=== PATIENT | female | born 1960 | race Caucasian/White ===

== ENCOUNTER 2020-09-15 07:34 | Outpatient (REF) | payer OTHER, SELFPAY ==
[2020-09-15 08:39] LABS: Hemoglobin 12.8 g/dl (12.0-16.0); Mean Corpuscular Hemoglobin 28.4 pg (27.0-33.0); Mean Corpuscular Volume 88.9 fL (80-98); Mean Platelet Volume 10.1 fL (9.4-12.3); Platelet Count 307 X10*3/uL (160-400); Red Cell Distribution Width 12.9 % (11.0-16.0); White Blood Count 5.2 X10*3/uL (4.8-10.8)
[2020-09-15 09:16] LABS: Alanine Aminotransferase 6 U/L (0-31); Albumin Level 4.4 g/dL (3.5-5.0); Alkaline Phosphatase 64 U/L (39-117); Anion Gap 16 (12-20); Aspartate Amino Transferase 15 U/L (5-31); Bilirubin Total 1.1 mg/dL (0.0-1.0); Blood Urea Nitrogen 18 mg/dL (9-16); Calcium 9.4 mg/dL (8.4-10.2); Carbon Dioxide 24 mmol/L (22-29); Chloride 106 mmol/L (96-108); Cholesterol 229 mg/dL; Estimated Glomerular Filt Rate 55; Glucose Random 83 mg/dL (60-115); HDL Cholesterol 65 mg/dL; LDL Cholesterol Calculated 150 mg/dl; Potassium 4.4 mmol/L (3.3-5.1); Sodium 142 mmol/L (135-145); Total Protein 7.1 g/dL (6.5-8.0); Triglycerides 74 mg/dL
[2020-09-15 09:28] LABS: TSH reflex Free T4 1.69 uIU/mL (0.32-4.0); Vitamin D 25-OH Total 24.1 ng/mL (>30)
[2020-09-15 10:29] LABS: Reflex LDLD? No
== END 2020-09-15 07:35 | disposition home or self-care (01) ==
LOC: HO.LAB 07:34
PROVIDERS: PCP Internal Medicine; Visit Provider Internal Medicine
DX: Z00.00 Encounter for general adult medical examination without abnormal findings (principal); E55.9 Vitamin D deficiency, unspecified; E04.1 Nontoxic single thyroid nodule; I10 Essential (primary) hypertension
CPT/HCPCS: 36415; 80053; 80061; 82306; 84443; 85027

== ENCOUNTER 2021-05-25 13:16 | Outpatient (REF) | payer OTHER, SELFPAY ==
[2021-05-25 15:10] LABS: Free T4 (Free Thyroxine) 1.07 ng/dL (0.71-1.85); Thyroid Stimulating Hormone 2.53 uIU/mL (0.32-4.0)
== END 2021-05-25 13:17 | disposition home or self-care (01) ==
LOC: HO.LAB 13:16
PROVIDERS: PCP Internal Medicine; Visit Provider Internal Medicine
DX: E04.2 Nontoxic multinodular goiter (principal)
CPT/HCPCS: 36415; 84439; 84443

== ENCOUNTER 2021-06-30 14:21 | Outpatient (REF) | payer OTHER, SELFPAY ==
--- NOTE | ~2021-06-30 | US_ITS ---
EXAMINATION: US THYROID CLINICAL INFORMATION: Nontoxic multinodular goiter. COMPARISON: Ultrasound soft tissue head/neck thyroid dated 03/24/2019 and 02/26/2018. TECHNIQUE: Linear transducer grayscale and color Doppler examination with attention to the region of the thyroid. FINDINGS: SIZE: Measurements of the thyroid lobes and nodules are given in sagittal, anteroposterior and transverse dimensions respectively. Right Thyroid Lobe: 4.7 x 1.3 x 1.6 cm, volume 5.0 mL. Previously 5.0 x 1.5 x 1.7 cm, volume 6.7 mL. Parenchyma: The gland echotexture is heterogeneous. Thyroid vascularity is normal. Left Thyroid Lobe: 5.2 x 1.1 x 1.8 cm, volume 5.0 mL. Previously 5.3 x 1.5 x 1.7 cm, volume 7.1 mL. Parenchyma: The gland echotexture is heterogeneous. Thyroid vascularity is normal. Isthmus: 0.3 cm in maximum AP dimension. Previously 0.5 cm. Estimated total number of nodules greater than or equal to 1 cm: 0. Manufacturing Technology Professor nodules are described as follows: 1. Location: Right superior. Size: 0.68 x 0.51 x 0.57 cm, volume 0.1 mL. Previously: Not seen on the previous study. Nodule characteristics: Composition: Solid (2). Echogenicity: Hypoechoic (2). Shape: Not taller than wide (0). Margins: Smooth (0). Echogenic Foci: None (0). ACR TI-RADS total points: 4 ACR TI-RADS category: 4 2. Location: Left superior. Size: 0.55 x 0.31 x 0.6 cm, volume 0.05 mL. Previously: Not seen on the previous study. Nodule characteristics: Composition: Solid (2). Echogenicity: Hypoechoic (2). Shape: Not taller than wide (0). Margins: Ill-defined (0). Echogenic Foci: None (0). ACR TI-RADS total points: 4 ACR TI-RADS category: 4 3. Location: Left mid. Size: 0.57 x 0.31 x 0.57 cm, volume 0.05 mL. Previously: Not seen on the previous study. Nodule characteristics: Composition: Solid/almost completely solid (2). Echogenicity: Isoechoic (1). Shape: Not taller than wide (0). Margins: Smooth (0). Echogenic Foci: None (0). ACR TI-RADS total points: 3 ACR TI-RADS category: 3 4. Location: Isthmus. Size: 0.5 x 0.32 x 0.5 cm, volume 0.08 mL. Previously: 0.5 x 0.3 x 0.5 cm, volume 0.08 mL. Nodule characteristics: Composition: Solid/almost completely solid (2). Echogenicity: Isoechoic (1). Shape: Not taller than wide (0). Margins: Smooth (0). Echogenic Foci: None (0). ACR TI-RADS total points: 3 ACR TI-RADS category: 3 5. Location: Isthmus. Size: 0.35 x 0.2 x 0.25 cm, volume 0.01 mL. Previously: 0.52 x 0.25 x 0.35 cm, volume 0.02 mL. Nodule characteristics: Composition: Solid/almost completely solid (2). Echogenicity: Hypoechoic (2). Shape: Not taller than wide (0). Margins: Smooth (0). Echogenic Foci: None (0). ACR TI-RADS total points: 4 ACR TI-RADS category: 4 NODES: A few scattered normal-size lymph nodes.. US/US thyroid IMPRESSION: Redemonstration of mildly enlarged diffusely heterogeneous thyroid thyromegaly. Redemonstration of multiple bilateral solid subcentimeter lung nodules, mostly unchanged allowing for interobserver variability. ACR TI-RADS RECOMMENDATION REFERENCE: Ultrasound-guided fine-needle aspiration, followup ultrasound, no further follow up. * TR1 (0 point) and TR 2 (2 points): No FNA or follow up * TR3 (3 points): FNA if more than or equal to 2.5 cm in maximum dimension, followup ultrasound in 1, 3 and 5 years if 1.5 to 2.4 cm in maximum dimension. * TR4 (4-6 points): FNA if more than or equal to 1.5 cm in maximum dimension, followup ultrasound in 1, 2, 3 and 5 years if 1 to 1.4 cm in maximum dimension. * TR5 (more than or equal to 7 points): FNA if more than or equal to 1 cm in maximum dimension, followup ultrasound every year for 5 years if 0.5 to 0.9 cm in maximum dimension. * TR3, TR4 or TR5 nodules that are below the size threshold for follow up receive no follow up.
== END 2021-06-30 14:22 | disposition home or self-care (01) ==
LOC: HO.US 14:21
PROVIDERS: Visit Provider Internal Medicine
DX: E04.2 Nontoxic multinodular goiter (principal)
CPT/HCPCS: 76536

== ENCOUNTER 2021-09-14 07:02 | Outpatient (REF) | payer OTHER, SELFPAY ==
[2021-09-14 07:30] LABS: Hematocrit 41.9 % (37.0-47.0); Hemoglobin 13.4 g/dl (12.0-16.0); Mean Corpuscular Hemoglobin 28.9 pg (27.0-33.0); Mean Corpuscular Volume 90.5 fL (80.0-98.0); Mean Platelet Volume 10.2 fL (9.4-12.3); Platelet Count 210 X10*3/uL (160-400); Red Blood Count 4.63 X10*6/uL (4.20-5.50); Red Cell Distribution Width 12.5 % (11.0-16.0); White Blood Count 4.8 X10*3/uL (4.8-10.8)
[2021-09-14 07:59] LABS: Alanine Aminotransferase 13 U/L (0-31); Albumin Level 4.2 g/dL (3.5-5.0); Alkaline Phosphatase 47 U/L (39-117); Anion Gap 13 (12-20); Aspartate Amino Transferase 17 U/L (5-31); Bilirubin Total 0.9 mg/dL (0.0-1.0); Blood Urea Nitrogen 21 mg/dL (9-16); Calcium 9.7 mg/dL (8.4-10.2); Carbon Dioxide 24 mmol/L (22-29); Chloride 106 mmol/L (96-108); Cholesterol 210 mg/dL; Estimated Glomerular Filt Rate 55; Glucose Random 84 mg/dL (60-115); HDL Cholesterol 65 mg/dL; LDL Cholesterol Calculated 132 mg/dl; Potassium 4.1 mmol/L (3.3-5.1); Sodium 139 mmol/L (135-145); Total Protein 6.7 g/dL (6.5-8.0); Triglycerides 66 mg/dL
[2021-09-14 12:03] LABS: Reflex LDLD? No
[2021-09-15 14:16] LABS: Vitamin D 25-OH Total 43.1 ng/mL (>30)
== END 2021-09-14 07:03 | disposition home or self-care (01) ==
LOC: HO.LAB 07:02
PROVIDERS: PCP Internal Medicine; Visit Provider Internal Medicine
DX: I10 Essential (primary) hypertension (principal); E78.5 Hyperlipidemia, unspecified; E55.9 Vitamin D deficiency, unspecified
CPT/HCPCS: 36415; 80053; 80061; 82306; 85027

== ENCOUNTER 2022-05-22 12:48 | Outpatient (REF) | payer OTHER, SELFPAY ==
--- NOTE | ~2022-05-22 | US_ITS ---
EXAMINATION: US THYROID CLINICAL INFORMATION: Nontoxic multinodular goiter. COMPARISON: Ultrasound soft tissue head/neck thyroid dated 06/30/2021 and 03/24/2019. TECHNIQUE: Linear transducer grayscale and color Doppler examination with attention to the region of the thyroid. FINDINGS: SIZE: Measurements of the thyroid lobes and nodules are given in sagittal, anteroposterior and transverse dimensions respectively. Right Thyroid Lobe: 5.3 x 1.3 x 1.6 cm, volume 5.6 mL. Previously 4.7 x 1.3 x 1.6 cm, volume 5.0 mL. Parenchyma: The gland echotexture is heterogeneous. Thyroid vascularity is normal. Left Thyroid Lobe: 5.4 x 1.4 x 1.5 cm, volume 6.1 mL. Previously 5.2 x 1.1 x 1.8 cm, volume 5.0 mL. Parenchyma: The gland echotexture is heterogeneous. Thyroid vascularity is normal. Isthmus: 0.4 cm in maximum AP dimension. Previously 0.3 cm. Estimated total number of nodules greater than or equal to 1 cm: 0. Lead Assistant Manager nodules are described as follows: 1. Location: Right inferior. Size: 0.7 x 0.4 x 0.6 cm, volume 0.09 mL. Previously: New since the previous study. Nodule characteristics: Composition: Solid (2). Echogenicity: Isoechoic (1). Shape: Not taller than wide (0). Margins: Smooth (0). Echogenic Foci: None (0). ACR TI-RADS total points: 3 ACR TI-RADS category: 3 2. Location: Left superior/mid. Size: 0.6 x 0.4 x 0.7 cm, volume 0.08 mL. Previously: 0.6 x 0.6 x 0.3 cm, volume 0.05 mL. Nodule characteristics: Composition: Solid/almost completely solid (2). Echogenicity: Isoechoic (1). Shape: Not taller than wide (0). Margins: Smooth (0). Echogenic Foci: None (0). ACR TI-RADS total points: 3 Previous: 3 ACR TI-RADS category: 3 Previous: 3 Significant change in size (>/= 20% in 2 dimensions and minimal increase of 2 mm or 50% or greater increase in volume): None Change in features: None Change in ACR TI-RADS risk category: No change 3. Location: Isthmus. Size: 0.4 x 0.2 x 0.3 cm, volume 0.008 mL. Previously: 0.3 x 0.3 x 0.2 cm, volume 0.009 mL. Nodule characteristics: Composition: Solid/almost completely solid (2). Echogenicity: Hypoechoic (2). Shape: Not taller than wide (0). Margins: Smooth (0). Echogenic Foci: None (0). ACR TI-RADS total points: 4 Previous: 4 ACR TI-RADS category: 4 Previous: 4 Significant change in size (>/= 20% in 2 dimensions and minimal increase of 2 mm or 50% or greater increase in volume): None Change in features: None Change in ACR TI-RADS risk category: No change 4. Location: Isthmus. Size: 0.5 x 0.2 x 0.5 cm, volume 0.03 mL. Previously: 0.5 x 0.5 x 0.3 cm, volume 0.08 mL. Nodule characteristics: Composition: Solid/almost completely solid (2). Echogenicity: Isoechoic (1). Shape: Not taller than wide (0). Margins: Smooth (0). Echogenic Foci: None (0). ACR TI-RADS total points: 3 Previous: 3 ACR TI-RADS category: 3 Previous: 3 Significant change in size (>/= 20% in 2 dimensions and minimal increase of 2 mm or 50% or greater increase in volume): None Change in features: None Change in ACR TI-RADS risk category: No change NODES: No lymphadenopathy is seen in the tissue surrounding the thyroid gland. US/US thyroid IMPRESSION: 1. Heterogeneous thyroid gland with subcentimeter nonsuspicious nodules. No change from the last exam. 2. TR1 (0 point) and TR 2 (2 points): 3. TR4 (4-6 points): FNA if more than or equal to 1.5 cm in maximum dimension, followup ultrasound in 1, 2, 3 and 5 years if 1 to 1.4 cm in maximum dimension. 4. TR5 (more than or equal to 7 points): FNA if more than or equal to 1 cm in maximum dimension, followup ultrasound every year for 5 years if 0.5 to 0.9 cm in maximum dimension.
[2022-05-22 15:52] LABS: Free T4 (Free Thyroxine) 0.94 ng/dL (0.71-1.85); Thyroid Stimulating Hormone 1.28 uIU/mL (0.32-4.0)
== END 2022-05-22 12:49 | disposition home or self-care (01) ==
LOC: HO.US 12:48
PROVIDERS: PCP Internal Medicine; Visit Provider Internal Medicine
DX: E04.2 Nontoxic multinodular goiter (principal)
CPT/HCPCS: 36415; 76536; 84439; 84443

== ENCOUNTER 2022-06-22 09:58 | Outpatient (REF) | payer OTHER, SELFPAY ==
[2022-06-22 11:36] LABS: Alanine Aminotransferase 11 U/L (0-31); Albumin Level 4.2 g/dL (3.5-5.0); Alkaline Phosphatase 46 U/L (39-117); Anion Gap 9 (12-20); Aspartate Amino Transferase 17 U/L (5-31); Bilirubin Total 0.7 mg/dL (0.0-1.0); Blood Urea Nitrogen 20 mg/dL (9-16); Calcium 9.4 mg/dL (8.4-10.2); Carbon Dioxide 28 mmol/L (22-29); Chloride 108 mmol/L (96-108); Estimated Glomerular Filt Rate 58; Glucose Random 88 mg/dL (60-115); Phosphorus 3.7 mg/dL (2.7-4.5); Potassium 4.1 mmol/L (3.3-5.1); Sodium 141 mmol/L (135-145); Total Protein 6.7 g/dL (6.5-8.0); Vitamin D 25-OH Total 47.5 ng/mL (>30)
[2022-06-25 13:09] LABS: Calcium (PTHI) 9.4 mg/dL (8.6-10.4); PTHI 55 pg/mL (16-77)
== END 2022-06-22 09:59 | disposition home or self-care (01) ==
LOC: HO.LAB 09:58
PROVIDERS: PCP Internal Medicine; Visit Provider Internal Medicine
DX: E21.3 Hyperparathyroidism, unspecified (principal)
CPT/HCPCS: 36415; 80053; 82306; 83970; 84100

== ENCOUNTER 2022-08-10 08:46 | Outpatient (REF) | payer OTHER, SELFPAY ==
--- NOTE | 2022-08-10 09:07 | P.BOP_ITS ---
Brief Operative Note Date of Service: 08/10/22 Pre-op diagnosis: Goiter Procedure: EXAMINATION: US THYROID CLINICAL INFORMATION: Multinodular Thyroid COMPARISON: Prior TECHNIQUE: Linear transducer block-scale and color Doppler examination with attention to the region of the thyroid. FINDINGS: SIZE: Measurements of the thyroid lobes and nodules are given in sagittal, anteroposterior and transverse dimensions respectively. Right Thyroid Lobe: 4.6 x 1.1 x 1.7 cm, volume 4.5 mL. Parenchyma: The gland echotexture is diffusely heterogenous. Thyroid vascularity is increased. Left Thyroid Lobe: 5.2 x 1.4 x 1.7 cm, volume 6.5 mL. Parenchyma: The gland echotexture is diffusely heterogenous. Thyroid vascularity is increased. Isthmus: 0.5 cm in maximum AP dimension. There are no true thyroid nodules appreciated, only pseudonodules in this diffusely heterogenous gland. NODES: No lymph nodes were assessed during this exam. Surgeon: Aurea Pires, DO Was an Environmental Health Technologist used for this Procedure?: No Estimated blood loss (mL): 0
== END 2022-08-10 08:47 | disposition home or self-care (01) ==
LOC: HO.US 08:46
PROVIDERS: Visit Provider Internal Medicine
DX: E04.2 Nontoxic multinodular goiter (principal)
CPT/HCPCS: 76536

== ENCOUNTER → 2022-10-25 09:32 | Outpatient (BNVA) | payer OTHER, SELFPAY | PROVIDERS: PCP Internal Medicine; Visit Provider Internal Medicine ==

== ENCOUNTER 2022-11-22 07:35 | Outpatient (REF) | payer OTHER, SELFPAY ==
[2022-11-22 07:49] LABS: MANUAL DIFF FLAG NO
[2022-11-22 08:34] LABS: Basophils Absolute Auto 0.1 X10*3/uL (0.0-0.2); Basophils Percent Auto 1.2 % (0-2); Eosinophils Absolute Auto 0.1 X10*3/uL (0.0-0.4); Eosinophils Percent Auto 2.7 % (0-4); Hematocrit 41.5 % (37.0-47.0); Hemoglobin 13.2 g/dl (12.0-16.0); Imm Gran Abs Auto 0.01 X10*3/uL (0.00-0.03); Imm Gran Pct Auto 0.2 % (0.0-0.4); Lymphocytes Absolute Auto 1.5 X10*3/uL (1.2-4.9); Lymphocytes Percent Auto 29.8 % (20-40); Mean Corpuscular HGB Conc 31.8 g/dl (31.0-35.0); Mean Corpuscular Hemoglobin 28.7 pg (27.0-33.0); Mean Corpuscular Volume 90.2 fL (80.0-98.0); Mean Platelet Volume 10.1 fL (9.4-12.3); Monocytes Absolute Auto 0.6 X10*3/uL (0.1-1.2); Monocytes Percent Auto 11.5 % (2-11); Neutrophils Absolute Auto 2.8 x10*3/uL (2.0-8.3); Neutrophils Percent Auto 54.6 % (45-73); Platelet Count 246 X10*3/uL (160-400); Red Cell Distribution Width 13.1 % (11.0-16.0); White Blood Count 5.1 X10*3/uL (4.8-10.8)
[2022-11-22 09:22] LABS: Alanine Aminotransferase 13 U/L (0-31); Albumin Level 4.3 g/dL (3.5-5.0); Alkaline Phosphatase 57 U/L (39-117); Anion Gap 12 (12-20); Aspartate Amino Transferase 19 U/L (5-31); Blood Urea Nitrogen 19 mg/dL (9-16); Calcium 9.7 mg/dL (8.4-10.2); Carbon Dioxide 25 mmol/L (22-29); Chloride 108 mmol/L (96-108); Cholesterol 229 mg/dL; Estimated Glomerular Filt Rate 58; Glucose Random 86 mg/dL (60-115); HDL Cholesterol 71 mg/dL; LDL Cholesterol Calculated 143 mg/dl; Potassium 4.3 mmol/L (3.3-5.1); Sodium 141 mmol/L (135-145); Total Protein 6.9 g/dL (6.5-8.0); Triglycerides 75 mg/dL
[2022-11-22 09:34] LABS: ~HepC Num1 0.08 S/CO (0.00-0.79); ~Hepatitis C Antibody Nonreactive (Nonreactive)
[2022-11-22 09:40] LABS: Vitamin D 25-OH Total 53.5 ng/mL (>30)
== END 2022-11-22 07:36 | disposition home or self-care (01) ==
LOC: HO.LAB 07:35
PROVIDERS: PCP Internal Medicine; Visit Provider Internal Medicine
DX: Z00.00 Encounter for general adult medical examination without abnormal findings (principal); I10 Essential (primary) hypertension; Z11.59 Encounter for screening for other viral diseases; E55.9 Vitamin D deficiency, unspecified
CPT/HCPCS: 36415; 80053; 80061; 82306; 85025; 86803

== ENCOUNTER 2023-08-16 06:59 | Outpatient (REF) | payer OTHER, SELFPAY ==
[2023-08-16 07:12] LABS: MANUAL DIFF FLAG NO
[2023-08-16 07:53] LABS: Basophils Percent Auto 0.7 % (0-2); Eosinophils Absolute Auto 0.2 X10*3/uL (0.0-0.4); Eosinophils Percent Auto 3.5 % (0-4); Hematocrit 39.9 % (37.0-47.0); Hemoglobin 12.8 g/dl (12.0-16.0); Imm Gran Abs Auto 0.01 X10*3/uL (0.00-0.03); Imm Gran Pct Auto 0.2 % (0.0-0.4); Lymphocytes Absolute Auto 1.7 X10*3/uL (1.2-4.9); Lymphocytes Percent Auto 30.9 % (20-40); Mean Corpuscular HGB Conc 32.1 g/dl (31.0-35.0); Mean Corpuscular Hemoglobin 28.5 pg (27.0-33.0); Mean Corpuscular Volume 88.9 fL (80.0-98.0); Mean Platelet Volume 10.1 fL (9.4-12.3); Monocytes Absolute Auto 0.6 X10*3/uL (0.1-1.2); Monocytes Percent Auto 11.4 % (2-11); Neutrophils Absolute Auto 2.9 x10*3/uL (2.0-8.3); Neutrophils Percent Auto 53.3 % (45-73); Platelet Count 251 X10*3/uL (160-400); Red Blood Count 4.49 X10*6/uL (4.20-5.50); Red Cell Distribution Width 12.9 % (11.0-16.0); White Blood Count 5.4 X10*3/uL (4.8-10.8)
[2023-08-16 08:36] LABS: Alanine Aminotransferase 8 U/L (0-31); Albumin Level 4.2 g/dL (3.5-5.0); Alkaline Phosphatase 48 U/L (39-117); Anion Gap 13 (12-20); Aspartate Amino Transferase 15 U/L (5-31); Bilirubin Total 0.5 mg/dL (0.0-1.0); Blood Urea Nitrogen 18 mg/dL (9-16); Calcium 9.5 mg/dL (8.4-10.2); Carbon Dioxide 27 mmol/L (22-29); Chloride 107 mmol/L (96-108); Cholesterol 230 mg/dL (<200); Estimated Glomerular Filt Rate 58; Glucose Random 92 mg/dL (60-115); HDL Cholesterol 62 mg/dL (>40); LDL Cholesterol Calculated 153 mg/dL (<100); Potassium 4.2 mmol/L (3.3-5.1); Sodium 143 mmol/L (135-145); Triglycerides 75 mg/dL (<150)
[2023-08-16 08:56] LABS: Thyroid Stimulating Hormone 1.79 uIU/mL (0.32-4.0)
== END 2023-08-16 07:00 | disposition home or self-care (01) ==
LOC: HO.LAB 06:59
PROVIDERS: PCP Nurse Practitioner Family; Visit Provider Nurse Practitioner Family
DX: Z00.00 Encounter for general adult medical examination without abnormal findings (principal); E04.2 Nontoxic multinodular goiter; E78.00 Pure hypercholesterolemia, unspecified
CPT/HCPCS: 36415; 80053; 80061; 84439; 84443; 85025

== ENCOUNTER 2024-09-11 07:01 | Outpatient (REF) | payer OTHER, SELFPAY ==
[2024-09-11 07:54] LABS: Alanine Aminotransferase 11 U/L (0-31); Albumin Level 4.3 g/dL (3.5-5.0); Alkaline Phosphatase 51 U/L (39-117); Anion Gap 11 (12-20); Aspartate Amino Transferase 17 U/L (5-31); Bilirubin Total 0.6 mg/dL (0.0-1.0); Blood Urea Nitrogen 17 mg/dL (9-16); Calcium 9.5 mg/dL (8.4-10.2); Carbon Dioxide 25 mmol/L (22-29); Chloride 108 mmol/L (96-108); Cholesterol 218 mg/dL (<200); Estimated Glomerular Filt Rate 56; Glucose Random 93 mg/dL (60-115); HDL Cholesterol 66 mg/dL (>40); LDL Cholesterol Calculated 137 mg/dL (<100); Sodium 140 mmol/L (135-145); Total Protein 7.5 g/dL (6.5-8.0); Triglycerides 76 mg/dL (<150)
[2024-09-11 08:21] LABS: HIV AB/AG Nonreactive (Nonreactive); HIV Num 1 0.15 S/CO (0.00-0.99)
[2024-09-11 08:30] LABS: Thyroid Stimulating Hormone 1.83 uIU/mL (0.32-4.0); Vitamin D 25-OH Total 56.3 ng/mL (>30)
== END 2024-09-11 07:02 | disposition home or self-care (01) ==
LOC: HO.LAB 07:01
PROVIDERS: PCP Nurse Practitioner Family; Visit Provider Nurse Practitioner Family
DX: Z87.448 Personal history of other diseases of urinary system (principal); E55.9 Vitamin D deficiency, unspecified; E04.2 Nontoxic multinodular goiter; Z11.4 Encounter for screening for human immunodeficiency virus [HIV]; I10 Essential (primary) hypertension
CPT/HCPCS: 36415; 80053; 80061; 82306; 84439; 84443; 87389

== ENCOUNTER 2025-05-07 07:08 | Outpatient (REF) | payer OTHER, SELFPAY ==
--- OUTSIDE RECORDS SUMMARY | 2025-05-07 07:10 | XMS_ITS | Clinical Summary ---
Author Organization [facility] Address [address] [facility] [address] [place] [phone] Phone Care Team Providers Care Cream Hauler Name Role Phone Mable Mcpherson [facility] Primary Care Provid er Allergies Active Allergy Reactions Criticality Noted Date Comments Aspirin Rash Low 02/01/2022 GI BLEED Lisinopril Cough 02/01/2022 Other Hives,Rash Low 12/10/1997 Antihistamines Simvastatin Musculoskeletal Pain 12/11/2003 Medications TURMERIC ORAL Take 500 mg by mouth daily. 3 caps daily Active cholecalciferol, vitamin D3, (VITAMIN D3 ORAL) Take 2,000 Units by mouth daily. Active COLLAGEN MISC by Miscellaneous route. Colagen peptides powder 1 scoop once daily. Active GENERIC EXTERNAL MEDICATION Take 2 capsules by mouth daily. SEED Synbiotic 02/10/20 21 Active irbesartan (AVAPRO) 150 MG tabletIndication s:Benign essential hypertension Take 1 tablet (150 mg total) by mouth daily. 90 tablet 3 04/08/20 25 Active irbesartan (AVAPRO) 150 MG tabletIndication s:Benign essential hypertension Take 1 tablet (150 mg total) by mouth daily. 90 tablet 01/06/20 25 025 Discontin ued(Reord er) Active Problems Problem Noted Date Diagnosed Date Thumb pain, right 11/06/2024 Assessment & Plan (11/06/2024 9:25 AM EDT): The symptoms suggest an overuse injury, likely tendinitis. The pain appears to be more related to soft tissue than the joint itself. - Physical examination reveals swelling in the thumb area, consistent with tendinitis. - An x-ray or further workup is not deemed necessary at this point. Rest is recommended as the initial treatment. - A spica splint may be beneficial to immobilize the thumb and remind her to avoid using it. Compression with fingerless gloves or an elastic bandage could also provide relief. Voltaren gel is suggested for topical application to reduce inflammation. If the condition worsens, a follow-up appointment is advised. Hyperlipidemia 05/09/2024 Assessment & Plan (11/06/2024 9:25 AM EDT): LDL cholesterol level is 137 mg/dL, which is an improvement from previous levels but still above the ideal range of under 130 mg/dL. - Her risk for cardiovascular disease over the next 10 years is estimated at 7.2 percent, which is relatively low. - She is advised to consider taking red yeast rice as a supplement to help lower her cholesterol levels. - A lipid panel will be ordered for her to complete before her next visit. Assessment & Plan (05/09/2024 9:29 AM EST): Her cholesterol levels are being monitored. She follows a healthy diet and exercises regularly. Previous attempts with statins (simvastatin) caused significant muscle pain. If her cholesterol levels remain high or her overall CAD risk factors increase, an alternative statin or medications like Zetia may be considered. Orders for cholesterol tests will be sent. Bradycardia 05/09/2024 Assessment & Plan (05/09/2024 9:36 AM EST): Mild bradycardia w/ resting HR 50-60's bpm, appears to be chronic per record review. She does report some intermittent dizziness which she attributes to fluctuations in her BP. She was advised to monitor her heart rate as well as if her heart rate is dropping lower it may cause similar symptoms. If she notes any abnormalities or her symptoms are increasing, a Holter monitor/ambulatory cardiac monitoring may be considered. CKD stage 3a, GFR 45-59 ml/min 04/14/2022 Assessment & Plan (11/06/2024 9:27 AM EDT): Kidney function borderline w/ Cr 1.0 and GFR 56, hx of CKD which had largely resolved with improved BP control and discontinuing diuretics. - Continue periodic lab monitoring. Emphasized the importance of BP control. - Avoid regular use of NSAIDs. Renally dose meds. Assessment & Plan (05/09/2024 9:29 AM EST): Her kidney function has been stable, with no symptoms. The most recent labs from a year and a half ago indicated normal kidney function. Orders for a metabolic panel will be sent. Assessment & Plan (12/01/2022 3:21 PM EDT): Has normalized Not being followed by Renal anymore Assessment & Plan (04/14/2022 3:43 PM EDT): Has been improved and stable Check labs Vitamin D deficiency 04/14/2022 Assessment & Plan (05/09/2024 9:34 AM EST): She has a history of low vitamin D levels and currently takes a vitamin D supplement. Monitor level. Assessment & Plan (04/14/2022 3:44 PM EDT): Unclear if stable, check lab Benign essential hypertension 04/14/2022 Assessment & Plan (11/06/2024 9:25 AM EDT): Blood pressure readings were slightly elevated today at 144/80 mmHg, but she reported normal readings at home (mid-120s/70s-80s). - She is currently on irbesartan 150 mg. Increasing the dose of irbesartan by 75 mg or adding a calcium channel faustino like amlodipine were discussed as potential options if home readings are consistently high. - She is advised to monitor her blood pressure at various times throughout the day over the next week and maintain a log. If her systolic readings remain in the 130s or less, no changes will be made to her current medication regimen. - If her systolic readings occasionally reach into the 140s, a slight adjustment to her medication may be necessary. Assessment & Plan (05/09/2024 9:27 AM EST): She is currently taking irbesartan for high blood pressure. Her blood pressure today is well controlled, at goal <130/80. She monitors her blood pressure regularly at home and adjusts her medication as needed, especially during weather changes. She was advised to continue monitoring her blood pressure and report any significant changes. Assessment & Plan (12/01/2022 3:20 PM EDT): Controlled on meds Assessment & Plan (04/14/2022 3:43 PM EDT): Controlled with meds Multiple thyroid nodules 04/14/2022 Assessment & Plan (05/09/2024 9:33 AM EST): She has a personal history of thyroid nodules. Her thyroid function has been normal, and she was discharged from endocrinology follow-up last year. Orders for thyroid tests will be sent. Assessment & Plan (12/01/2022 3:20 PM EDT): Per patient, no further need for Endo f/u Assessment & Plan (04/14/2022 3:43 PM EDT): Sees Endo at [facility] Family history of malignant neoplasm of thyroid 04/14/2022 Assessment & Plan (05/09/2024 9:33 AM EST): She has a family history of anaplastic thyroid carcinoma and a personal history of nodules. Per endo, no need for screening ultrasound. Monitor TSH and ft4. Assessment & Plan (12/01/2022 3:21 PM EDT): Monitor for abnormal symptoms Resolved Problems Problem Noted Date Diagnosed Date Resolved Date Needs flu shot 04/14/2022 05/30/2023 Need for hepatitis C screening test 04/14/2022 05/30/2023 Immunizations Immunization Administration Dates Next Due INFLUENZA, SPLIT VIRUS, TRIVALENT PF 05/09/2024 Influenza Quadrivalent MDCK Preservative Free IM 04/16/2023,04/22/2018 Influenza Quadrivalent Preservative Free IM 03/26,03/29/2021 Tdap 11/25/2015 Zoster recombinant 03/23/2023,12/01/2022 Family History Medical History Relation Comments CABG Father x4 Hyperlipidemia Father Hypertension Father Thyroid cancer Father Dementia Mother Stroke Mother Breast cancer Neg Hx Colon cancer Neg Hx Ovarian cancer Neg Hx Relation Status Comments Brother Alive Daughter Father (Age 76) Mother Social History Tobacco Use Types Packs/Day Years Used Date Smoking Tobacco: Never Smokeless Tobacco: Never Tobacco Cessation:Counseling Given: Not Answered Alcohol Use Standard Drinks/Week Comments Yes 0 (1 standard drink = 0.6 oz pur e alcohol) 1-2 drinks, 2-4 x month Child or Family Care Answer Date Record ed Do you have problems with on e of the following making it difficult for you to work, study, or receive health care? No 05/29/2023 Education Answer Date Recorded Are you interested in help w ith more adult education (for example, completing high school, GED, job training, learning the Telugu language, technical skills, or developing parenting skills)? No 05/29/2023 Are you concerned about learning? Not on file 05/29/2023 No 05/29/2023 Yes 05/29/2023 Food Answer Date Recorded Within the past 6 months we worried whether our food would run out before we got money to buy more. Never True 05/29/2023 Within the past 6 months the food we bought just didn't last and we didn't have enough money to get more. Never True Residential Stability Answer Date Recor ded What is your housing situation today? I have dmitry sing 05/29/2023 How many times have you move d in the past 12 months? Zero (I did not move) 05/29/2023 Paying for Meds Answer Date Recorded Do you have trouble paying for medicines? No 05/29/2023 Paying Utility Bills Answer Date Record ed Do you have trouble paying your heating or elect ricity bill? No 05/29/2023 Transportation Answer Date Recorded Has the lack of transportati on kept you from medical appointments or from getting medications? No 05/29/2023 Unemployment Answer Date Recorded Are you currently unemployed or working on a part-time or temporary basis, and looking for work? No 04/11/2022 Digital Access Answer Date Recorded No 05/29/2023 Yes 05/29/2023 Do you have reliable internet access at home? Ye s 05/29/2023 Do you have a device (e.g., phone, tablet, computer) with a working camera? Yes 05/29/2023 Intimate Partner Violence Answer Date R ecorded Denied Basic Needs Not on file 05/04/2024 In the past 12 months have y ou been in a relationship with a person who hurts, threatens, or tries to control you? No 05/04/2024 Worried food would run out Not on file 05/04 In the past 12 months have y ou been in a relationship with a person who hurts, threatens, or tries to control you? No 05/04/2024 Comments Unknown Sex and Gender Information Value Date Recorded Sex Assigned at Not on file Legal Sex Female 4:37 PM EST Gender Identity Not on file Sexual Orientation Not on file Last Filed Vital Signs Vital Sign Reading Time Taken Comments Blood Pressure 144/80 11/06/2024 8:50 AM EDT Pulse 66 11/06/2024 8:19 AM EDT Temperature 36.4 C (97.6 F) 11/06/2024 8:19 AM EDT Respiratory Rate 16 05/30/2023 2:35 PM EST Oxygen Saturation 98% 11/06/2024 8:19 AM EDT Inhaled Oxygen Concentration - - Weight 57.4 kg (126 lb 9.6 oz) 11/06/2024 8:19 A M EDT Height 166.4 cm (5' 5.5 ) 05/30/2023 2:35 PM EST Body Mass Index 20.75 05/30/2023 2:35 PM EST Plan of Treatment Upcoming Encounters Date Type Department Care Team (Late st Contact Info) Description 05/18/2025 8:00 AM EST Office Visit [facility] [address] [place] [address] [place] [address] Mable Mcpherson, MICAH [address] [facility], [address] [place] [address] [email or web address] Health Maintenance Due Date Last Done Comments COLONOSCOPY 2006 FIT TEST 2006 FOBT 2006 SIGMOIDOSCOPY 2006 VIRTUAL COLONOSCOPY 2006 PNEUMOCOCCAL VACCINES (50+ years) (1 of 1 - PCV) 2011 INFLUENZA VACCINE (#1) 2025 , 04/16/2023, 04/14/2022, Additional history exists COVID-19 VACCINE (2024- season) 2025 04/30/2023, 03/23/2022, 09/29/2021, Additional history exists DEPRESSION SCREENING 05/04/2025 05/04/2024 BLOOD PRESSURE 05/09/2025 11/06/2024 MAMMOGRAM 05/09/2025 04/14/2022 Postponed from 04/14/2024 (Patient Declines / Guardian Declines) PAP SMEAR 05/09/2025 05/30/2023 Postponed from 05/30/2024 (Patient Declines / Guardian Declines) CREATININE LEVEL 09/11/2025 09/11/2024, , 11/22/2022, Additional history exists POTASSIUM LEVEL 09/11/2025 09/11/2024, 10/25, 09/14/2021 Adult Td,Tdap Booster 11/24/2025 11/25/2015 COLOGUARD 05/14/2027 05/14/2024 COLORECTAL CANCER SCREENING 05/14/2027 LIPID PANEL 09/11/2029 09/11/2024, 10/25, 11/22/2022, Additional history exists RSV VACCINE (1 - 1-dose 75+ series) 2036 HEPATITIS C SCREENING Completed 11/22/2022, 022 ZOSTER VACCINES Completed 03/23/2023, 12/01/2022 HIV ONE-TIME SCREENING (18-65 YEARS) Completed 09/11/2024 SMOKING STATUS SCREENING (Once After 26 Yrs) Completed 11/06/2024 HEPATITIS A VACCINES Aged Out No long er eligible based on patient's age to complete this topic HIB VACCINES Aged Out No longer eligi ble based on patient's age to complete this topic IPV VACCINES Aged Out No longer eligi ble based on patient's age to complete this topic MENINGOCOCCAL VACCINES (ACWY) Aged Out No longer eligible based on patient's age to complete this topic MENINGOCOCCAL VACCINES (B) Aged Out N o longer eligible based on patient's age to complete this topic Medical Devices Not on file Procedures Procedure Name Priority Date/Time Associated Diagnosis Comments LIPID PANEL Routine 09/11/2024 7:05 AM EDT COMPREHENSIVE METABOLIC PANEL (CMP) Routine 09/11/2024 7:05 AM EDT PAP TEST Routine 05/30/2023 12:00 AM EST OUTSIDE HEPATITIS C VIRUS SCREENING Routine 11/22/2022 BI MAMMOGRAM SCREENING (BILATERAL) Routine 04/14/2022 3:21 PM EDT Routine general medical examination at a health care facility from Last 3 Months or Most Recently Relevant to Health Maintenance Results * (ABNORMAL) Comprehensive metabolic panel (09/11/2024 7:05 AM EDT) Sodium - External 140 135 - 145 mmol/L Potassium - External 4 3.3 - 5.1 mmol/L Chloride - External 108 96 - 108 mmol/L CO2 - External 25 22 - 29 mmol/L BUN - External 17(A) 9 - 16 mg/dL Creatinine - External 1 0.5 - 1.4 mg/dL Glucose - External 93 60 - 115 mg/dL Albumin - External 4.3 3.5 - 5 g/dL Protein - External 7.5 6.5 - 8 g/dL Calcium - External 9.5 8.4 - 10.2 mg/dL Alkaline Phosphatase - External 51 39 - 117 U/L Bilirubin, total - External 0.6 0 - 1 mg/dL AST - External 17 5 - 31 U/L ALT - External 11 0 - 31 U/L Globulin - External eGFR - External 56 >60 mL/min/1.7 3m2 Anion Gap - External 09/11/2024 7:05 AM EDT us Historical Provider LAB BLOOD BKR ORDERABLES Final Result * Lipid panel (09/11/2024 7:05 AM EDT) HDL - External 66 >40 Comment:mg/dL Cholesterol, Total - External 218 <200 Comment:mg/dL Triglycerides - External 76 <150 Comment:mg/dL LDL, calculated - External 137 <100 Comment:mg/dL Cardiac Risk Ratio - External Non-HDL Cholesterol - External 09/11/2024 7:05 AM EDT us Historical Provider MD LAB BLOOD BKR ORDERABLES Final Result * Pap Test (05/30/2023 12:00 AM EST) 05/30/2023 05/31/2023 9:3 8 AM EST Narrative SEE NARRATIVE - 06/05/2023 7:16 [place] [address] Export Sales Manager: Martha Farfan MD CIRCULAR KNITTER HELPER Cytology Report FINAL DIAGNOSIS A. PAP SMEAR (SUREPATH) CE: SPECIMEN ADEQUACY: Unsatisfactory for evaluation. Specimen processed and examined, but unsatisfactory due to insufficient squamous component. INTERPRETATION: UNSATISFACTORY FOR EVALUATION. A diagnosis cannot be rendered on an unsatisfactory specimen. Electronically Signed Out By: JERSON Alfonso(ASCP) JERSON Rodrigues(ASCP) The Pap test is a screening test primarily for squamous cancers and precursors and has associated false-negative and false-positive results. New technologies such as liquid-based preparations may decrease but will not eliminate all false-negative results. Regular sampling and follow-up of unexplained clinical signs and symptoms are recommended to minimize false negative results. PROCEDURES/ADDENDA HPV Testing (Requested) Ordered Date: 05/31/2023 A. PAP SMEAR (SUREPATH) CE: Human Papilloma Virus Test NEGATIVE for high-risk Human Papilloma Virus types 16, 18, 45 and the Other high risk probe set (Includes 31, 33, 35, 39, 51, 52, 56, 58, 59, 66, 68) Note: Testing performed by [employer] On[employer] HR-HPV analysis. Clinical correlation is advised. This HPV test was performed at [facility], [address] [place] [address]. This test has been FDA approved for [facility] cervical cytology specimens. The accuracy and precision of this test for all other specimen sources has been verified in the Cytopathology Laboratory of the [facility] and has not been cleared or approved by the U.S. Food and Drug Administration. Clinical correlation is advised. CLINICAL HISTORY Date of Last Menstrual Period: Not Provided Menstrual History: Post Menopausal Other Clinical Conditions: Screening Pap SPECIMEN SOURCE A: PAP SMEAR (SUREPATH) CE Patient Name: GLEN ROMEO : 1960 (Age: 63) Sex: F Institution: [facility] Location: [facility] Date of Collection: 05/30/2023 Date of Reported: 06/05/2023 19:16 Results to: Izabela Tate MSN, BSN Izabela Tate INSURANCE AGENCY OWNER CYTOLOGY ORDERABLES Final Resul t SEE NARRATIVE * Outside Hepatitis C Virus Screening (11/22/2022) Hepatitis C Screening - External Neg us Historical Provider MD LAB BLOOD ORDERABLES Dominique l Result from Last 3 Months or Most Recently Relevant to Health Maintenance Insurance [employer] [address] [employer] Care Teams Cream Hauler Relationship Specialty Start Date End Date Mable Mcpherson CNP [address] [place] [address], [address] [place] [address] [email or web address] PCP - General Family Medicine 05/09/24 Additional Source Comments The information contained in this document represents components of the legal health record. It is not the complete legal health record.[facility]
[2025-05-07 08:05] LABS: Alanine Aminotransferase 12 U/L (0-31); Albumin Level 4.6 g/dL (3.5-5.0); Alkaline Phosphatase 56 U/L (39-117); Anion Gap 11 (12-20); Aspartate Amino Transferase 20 U/L (5-31); Blood Urea Nitrogen 19 mg/dL (9-16); Calcium 9.5 mg/dL (8.4-10.2); Carbon Dioxide 27 mmol/L (22-29); Chloride 107 mmol/L (96-108); Cholesterol 198 mg/dL (<200); Estimated Glomerular Filt Rate 48; HDL Cholesterol 60 mg/dL (>40); Potassium 4.1 mmol/L (3.3-5.1); Sodium 141 mmol/L (135-145); Total Protein 7.3 g/dL (6.5-8.0); Triglycerides 92 mg/dL (<150)
== END 2025-05-07 07:09 | disposition home or self-care (01) ==
LOC: HO.LAB 07:08
PROVIDERS: PCP Nurse Practitioner Family; Visit Provider Nurse Practitioner Family
DX: E78.00 Pure hypercholesterolemia, unspecified (principal)
CPT/HCPCS: 36415; 80053; 80061